=== PATIENT | female | born 1995 | race Caucasian/White ===

== ENCOUNTER → 2022-05-18 | Emergency (ER) | payer OTHER ==
[~2022-05-18] VITALS: Ht 152.4 cm; Wt 49.9 kg
--- NOTE | 2022-05-18 10:43 | NUR ---
Patient discharged to [employer]. Written and verbal after care instructions given. Patient and lapd verbalizes understanding of instruction.
[2022-05-18 10:44] VITALS: BP 135/74
== END ==
LOC: ER 10:20